=== PATIENT | female | born 1975 | race Caucasian/White ===

== ENCOUNTER 2019-05-17 10:50 | Emergency (ER) | payer OTHER ==
[~2019-05-17] VITALS: Ht 167.6 cm; Wt 102.1 kg
[2019-05-17] MEDS ORDERED: GLUCOPHAGE1000 MG PO (11:18)
[2019-05-17] MEDS ORDERED: NEURONTIN 300300 M1 PO (11:18)
[2019-05-17] MEDS ORDERED: AMITRIPTYLINE H25 M2 PO (11:19)
[2019-05-17] MEDS ORDERED: FLEXERIL PO (11:20)
[2019-05-17] MEDS ORDERED: NORCO 5-325 TA1 EAC1 PO (11:20)
[2019-05-17] MEDS ORDERED: SYNTHROID125 MC1 PO (11:21)
[2019-05-17] MEDS ORDERED: IBUPROFEN 800800 M1 PO ×2 (11:33→11:55)
[2019-05-17] MEDS ORDERED: CELEXA40 MG PO (11:34)
[2019-05-17] MEDS ORDERED: LIPITOR40 MG PO (11:34)
[2019-05-17] MEDS ORDERED: HYDROXYZINE HCL25 M1 PO (11:34)
[2019-05-17] MEDS ORDERED: LISINOPRIL2.5 MG PO (11:34)
[2019-05-17] MEDS ORDERED: MEDROLDOSEPACK PO (11:55)
[2019-05-17] MEDS ORDERED: LIDODERM1 EACH TOP (11:56)
[2019-05-17 13:10] VITALS: BP 120/86
== END 2019-05-17 13:12 | disposition home or self-care (01) ==
LOC: M.ERS 10:50
DX: M54.41 Lumbago with sciatica, right side (principal); M54.42 Lumbago with sciatica, left side; F41.9 Anxiety disorder, unspecified; F32.9 Major depressive disorder, single episode, unspecified; F17.210 Nicotine dependence, cigarettes, uncomplicated; Z88.2 Allergy status to sulfonamides